=== PATIENT | male | born 1995 | race Caucasian/White ===

== ENCOUNTER 2025-01-15 10:45 | Emergency (ER) | payer OTHER, SELFPAY ==
[2025-01-15 10:47] VITALS: BP 120/84; PULSE 68; RESP 15; TEMP 36.6; O2SAT 97; BMI 24.0
--- NOTE | 2025-01-15 11:01 | CT_ITS ---
PROCEDURE: ABDOMEN/PELVIS W IV CONT ONLY 01/15/2025 REASON FOR EXAM: BILATERAL LOWER ABD AND GROIN PAIN. CROHNS HX. TECHNIQUE: Abdomen and pelvis CT with intravenous contrast. Coronal and Sagittal reconstruction series were provided. PATIENT PREPARATION: Per protocol ORAL CONTRAST TYPE: None. CONTRAST: Isovue 300 VOLUME: 94 mL One or more dose reduction techniques were used (e.g., Automated exposure control, adjustment of the mA and/or kV according to patient size, use of iterative reconstruction technique. RADIATION DOSE SUMMARY: CTDlvol: 10 mGy DLP: 521.32 mGycm COMPARISON: None FINDINGS: Lung bases: Unremarkable Liver: Normal size. No mass. Gallbladder: Unremarkable Spleen: Normal size. Pancreas: Normal size without evidence of mass surrounding inflammation or ductal dilation. Adrenals: Unremarkable Kidneys: Normal renal sizes. No hydronephrosis. Bladder: Mild degree of diffuse bladder wall thickening. Bowel: Prior surgical anastomosis at the distal ileum/cecal region. Appendix: The appendix is not identified. There is no inflammatory process identified in the right lower quadrant to suggest appendicitis. Lymph nodes: Unremarkable. Vasculature: The abdominal aorta and IVC are normal. Peritoneum / Retroperitoneum: Unremarkable Bones: Unremarkable CT/Abdomen/Pelvis W IV Cont ONLY IMPRESSION: Prior surgery at the distal ileum and right hemicolon. No acute abnormality is seen. Reading Location: [id number]
--- NOTE | 2025-01-15 11:02 | EDS_ITS ---
HPI HPI - GI History of Present Illness Chief Complaint: Abd Pain Informant: patient Abdominal Pain/Flank Pain Onset: Today and Yesterday Timing: Continuous Quality: Aching Location: - (Bilateral lower quadrant and groin pain.) Current Severity: Mild Maximum Severity: Mild Nausea/Vomiting/Emesis GI Symptom: Negative for Nausea or Vomiting Diarrhea/Melena/Hematochezia GI Symptom: Negative for Diarrhea, Melena or Hematochezia Associated Symptoms Associated Symptoms: Negative for Dysuria, Frequency or Hematuria Narrative Narrative: 29-year-old male history of Crohn's disease. Prior appendectomy in 2020 and prior ileal resection in 2023. He has had a prior abdominal drain due to an abscess due to Crohn's. Currently he just recently started Remicade infusion therapy about a week ago. He states that he had bilateral lower abdominal and groin pain since yesterday. Denies any nausea or vomiting. He had constipation he took a stool softener now his stools are loose. He denies any dysuria or hematuria. No fever. No recent weight loss. Pain is worse with movement. Denies any abdominal or trauma. Prior similar symptoms: No Recent Illness/Hospitalization: No PFSH PFSH Home Medications ?Medication ?Instructions ?Recorded ?Last Taken ?Type buspirone 10 mg tablet 10 mg PO BID 01/15/25 Unknow n History trazodone 100 mg tablet 100 mg PO QHS PRN sleep 12/29 05/24 Unknown History Allergy/AdvReac Type Severity Reaction Status Date / Time Environmental Allergies: Allergy Intermediate Itching Verified 01/15/25 11:06 Uncoded (seasonal) Surgical History (Updated 01/15/25 @ 11:06 by Kayla Lacey) Hx of appendectomy Social History Smoking Status: Former smoker ROS ROS ED ROS Narrative Bilateral lower abdominal discomfort. No dysuria. No fever. Prior constipation loose stools after stool softener. Constitutional Constitutional ED: Denies chills or fever(s) ENT ENT ED: Denies ear pain Cardiovascular Cardiovascular: Denies chest pain Respiratory/Chest Respiratory/Chest: Denies cough or dyspnea Gastrointestinal Gastrointestinal: Reports abdominal pain and constipation Genitourinary Genitourinary ED: Denies dysuria or hematuria Musculoskeletal Musculoskeletal: Denies arthralgias Integumentary Denies abscess Neurologic Neurologic: Denies headache(s) Psychiatric Psychiatric: Denies anxiety Endocrine Endocrinology: Denies polydipsia Hematologic/Lymphatic Hematologic/Lymphatic: Denies easy bleeding Allergic/Immunologic Allergic/Immunologic ED: Denies mouth swelling, tongue swelling or urticaria EXAM Physical Exam Narrative Exam Narrative: Well-appearing 29-year-old male. Vital signs stable afebrile. No acute distress. H EENT exam pupils round react to light. Moist extremities. Neck nontender no JVD. Lungs clear to auscultation bilaterally. Heart regular rhythm no murmur rate about 70. Chest wall ribs nontender. Abdomen soft nondistended normal bowel sounds without peritoneal signs. He has tenderness in bilateral lower abdomen and groin. There is no peritoneal signs. There is no obvious hernia or mass. Circumcised male. No scrotal tenderness or swelling. No testicular pain. Bilateral descended testicles. No redness. Moving all 4 extremities. Nontender no edema. Normal strength and range of motion. Back nontender. Neurologically he is awake and alert. Answering questions following commands. Const Vital Signs: 01/15/25 10:47 01/15/25 12:30 Temperature 98 F Temperature Source Temporal Pulse Rate 68 Respiratory Rate 15 Blood Pressure 120/84 H 120/81 H Blood Pressure Mean 96 92 Pulse Ox 97 99 Oxygen Delivery Method Room Air Positive well nourished and well developed; Negative for obese, cachectic, contractures or unkempt General Appearance ED: well developed and NAD; Negative for unkempt, cachectic or contractures Nutritional Appearance: Negative for cachectic or obese HEENT normocephalic and atraumatic Eyes PERRL and EOMs intact bilaterally Neck no lymphadenopathy, supple and no JVD General: Negative for tenderness Resp normal respiratory effort and clear to auscultation bilaterally Cardio regular rate, regular rhythm, S1 normal heart sound, S2 normal heart sound and no murmurs GI non-distended and no masses; Negative for non-tender GI Narrative: Bilateral groin tenderness. No obvious inguinal hernia or mass. No testicular or scrotal swelling. Bilateral descended testicles. Circumcised. No lymphadenopathy. Inspection: Negative for abdominal distention Auscultation: normoactive bowel sounds Palpation: soft and tender; Negative for guarding, rigid, hepatomegaly, splenomegaly, hernia, mass, pulsatile mass or rebound tenderness present Back/Spine no CVA tenderness General Back: Negative for CVA tenderness Cervical Spine: Negative for cervical spine tenderness Thoracic Spine / Upper Back: Negative for thoracic spinal tenderness Lumbar Spine / Lower Back: Negative for lumbar spinal tenderness Extremity full ROM General Extremety ED: Negative for edema or tenderness General Extremity: Negative for edema Neuro CN's II-XII intact bilaterally and moves all extremities Sensorium / Orientation: alert, oriented to person, oriented to place and oriented to time; Negative for orientation impaired, confused, lethargic or stuporous Motor Exam: strength 5/5 throughout Psych mental status grossly normal and thought process normal Appearance: Negative for unkempt Attitude: No agitated Mood & Affect: Negative for depressed, anxious or tearful Skin no wounds General Skin Exam: jaundice Lesions: no lesions Rashes: no rashes Trauma: Negative for abrasion Nails: Negative for discolored MDM MDM MDM Narrative Medical decision making narrative: 29-year-old male with history of Crohn's disease prior appendectomy and partial small bowel ileal resection. In the past. Complaining of bilateral groin pain. Exam benign. Mild tenderness. CAT scan labs are being obtained. Differential would include hernia which I do not see at this time. He does not appear to have any testicular swelling nor torsion nor hernia. There is no orchitis. UTI would be a consideration. Crohn's issue. He does not wining for pain. Repeat exam at 1:25 PM patient doing well. Abdomen benign. Repeat exam normal and unchanged. I went over all the test results with the patient he is comfortable being discharged home. Tylenol and Motrin for pain. Outpatient follow-up as needed. History & Record Review Discussion w/independent historian: Patient Additional record(s) reviewed:: No prior records Lab Data Attestation: I reviewed the patient's lab results. Lab results narrative: CBC normal. White count of 5.7. H&H 14 and 42. Platelets 301. Electrolytes show a gap at 9. BUN of 20 creatinine 1.1. Glucose 82. UA normal. No white or red cells. No nitrates. No bacteria. CAT scan abdomen pelvis showed no acute abnormality. Labs: Laboratory Results - last 24 hr 01/15/25 01/15/25 11:07 11:10 WBC 5.7 RBC 4.75 Hgb 14.2 Hct 42.4 MCV 89.3 MCH 29.9 MCHC 33.5 RDW Std Deviation 40.9 RDW Coeff of [place] 12.4 Plt Count 301 MPV 9.8 Immature Gran % (Auto) 0.300 Neut % (Auto) 58.5 Lymph % (Auto) 27.0 F[place]in % (Auto) 9.1 Eos % (Auto) 4.4 Baso % (Auto) 0.7 Absolute Neuts (auto) 3.4 Absolute Lymphs (auto) 1.55 Nucleated RBC % 0 Sodium 137 Potassium 4.5 Chloride 101 Carbon Dioxide 27.1 Anion Gap 9 BUN 20 H Creatinine 1.12 Estim Creat Clear Calc 92.46 Est GFR (MDRD) Non-Af 90 BUN/Creatinine Ratio 17.4 Glucose 82 Calcium 9.5 Urine Color Yellow Urine Clarity Clear Urine pH 7.0 Ur Specific [place] 1.010 Urine Protein TNP Urine Glucose (UA) Normal Urine Ketones Negative Urine Occult Blood Negative Urine Nitrite Negative Urine Bilirubin Negative Urine Urobilinogen Normal Ur Leukocyte Esterase Negative Urine RBC 0 SEEN Urine WBC 0 SEEN Ur Squamous Epith Cells 0 SEEN Urine Bacteria 0 SEEN Urine Mucus 0 SEEN U Random Total Protein < 6.0 Radiography Diagnostic Testing: Clinical Impression(s) from Imaging Studies Abdomen/Pelvis CT 01/15/25 11:01 IMPRESSION: Prior surgery at the distal ileum and right hemicolon. No acute abnormality is seen. Reading Location: [id number] Discharge Plan Triage Chief Complaint: Abd Pain ED Provider: Kentrell Barone Dx/Rx/DC Orders Clinical Impression: Groin pain Instructions: Abdominal Pain Prescriptions: No Action buspirone 10 mg tablet 10 mg PO BID trazodone 100 mg tablet 100 mg PO QHS PRN (Reason: sleep) Primary Care Provider: Carley Escamilla Referrals: Carley Escamilla, ALEISHA-C [Primary Care Provider] - 1 Week if not improving Activity Restrictions/Additional Instructions: Your labs, CAT scan and urine were all normal. No specific cause for your pain. Motrin and Tylenol for pain. Follow-up if not improving. Return if feeling a lot worse. Print Language: Algerian Disposition Disposition: Home, Self Care
[2025-01-15 11:14] LABS: Absolute Lymphocyte Count 1.55 X10^3/uL (0.83-4.51); Absolute Neutrophil Count 3.4 X10^3/uL (2.0-7.7); Basophil# 0.04 X10^3/uL; Basophil% 0.7 % (0-1); Eosinophil# 0.25 X10^3/uL; Eosinophils% 4.4 % (0-5); Hematocrit 42.4 % (40-54); Hemoglobin 14.2 g/dL (13.0-16.5); Lymphocyte # 1.55 X10^3/ul (0.83-4.51); Mean Corp Hgb Conc 33.5 g/dL (32-36); Mean Corpuscular Hgb 29.9 pg (27.0-32.0); Mean Corpuscular Volume 89.3 fL (80-94); Mean Platelet Vol. 9.8 fl (6.2-12.0); Monocyte# 0.52 X10^3/uL; Monocyte% 9.1 % (0-10); NRBC Flagged by Analyzer 0 % (0-5); Neutrophil # 3.36 X10^3/uL (2.7-7.7); Neutrophil % 58.5 % (47-70); Platelet Count 301 K/mm3 (150-450); RBC Distribution Width CV 12.4 % (11.6-14.6); RBC Distribution Width SD 40.9 fl (35.1-43.9); Red Blood Count 4.75 M/mm3 (4.6-6.2); White Blood Count 5.7 K/mm3 (4.4-11.0)
[2025-01-15 11:17] LABS: Bacteria 0 SEEN /hpf (None Seen); Mucous, Urine 0 SEEN /hpf (<or=2+); Red Blood Cells-Urine 0 SEEN /hpf (0-5); Squamous Epithelial Cells - UA 0 SEEN /hpf (0-5); White Blood Cells 0 SEEN /hpf (0-5)
[2025-01-15 11:29] LABS: Color, Urine Yellow (Yellow); Glucose, Dipstick Normal (Normal); Ketone-Dipstick Negative (Negative); Leukocyte Esterase-Dipstick Negative /ul (Negative); Nitrite-Dipstick Negative (Negative); Occult Blood-Urine Negative /ul (Negative); Urine Bilirubin Dipstick Negative (Negative); Urine Clarity Clear (Clear); Urine Urobilinogen Normal (Normal)
[2025-01-15 11:35] LABS: Anion Gap 9 (5-15); BUN 20 mg/dL (4-19); BUN/Creat Ratio 17.4 RATIO (10-20); Calcium,Total 9.5 mg/dL (7.6-11.0); Carbon Dioxide 27.1 mmol/L (21.0-32.0); Chloride 101 mmol/L (98-108); Creatinine, Serum 1.12 mg/dL (0.70-1.20); EST Glomerular Filtration Rate 90 (>60); Estimated Creatinine Clearance 92.46 ml/min (50-250); Glucose 82 mg/dL (70-99); Potassium 4.5 mmol/L (3.3-5.1); Sodium Level 137 mmol/L (133-145)
[2025-01-15 11:47] LABS: Protein, Urine (Random) < 6.0 mg/dL (0.0-12.0)
[2025-01-15 12:30] VITALS: BP 120/81; O2SAT 99
== END 2025-01-15 13:42 | disposition home or self-care (01) ==
PROVIDERS: Emergency Provider Emergency Medicine; Visit Provider Emergency Medicine
DX: R10.31 Right lower quadrant pain (principal); K50.90 Crohn's disease, unspecified, without complications; Z87.891 Personal history of nicotine dependence; R10.32 Left lower quadrant pain; Z90.79 Acquired absence of other genital organ(s); K59.00 Constipation, unspecified
CPT/HCPCS: 74177; 80048; 81001; 84156; 85025; 99282; Q9967; A4216

== ENCOUNTER 2025-01-15 19:37 | Emergency (ER) | payer OTHER, SELFPAY ==
[2025-01-15 19:37] VITALS: BP 132/93; PULSE 88; RESP 17; TEMP 36.7; O2SAT 98; BMI 23.3
--- NOTE | 2025-01-15 21:25 | EX.ED.GUMALE ---
HPI History of Present Illness Chief Complaint: Male Pain/Injury Narrative Narrative: Chief complaint and HPI: Bilateral groin pain. Patient is a 29-year-old male with past medical history of Crohn's disease on Remicade with history of appendectomy in 2020 and prior ileal resection in 2023 who presents for bilateral groin pain. Patient presented to emergency department earlier today with the same complaint in which he was seen by my partner. At that time he had laboratory workup ordered including CBC, BMP, UA that was unremarkable. Had a CT abdomen pelvis without any acute abnormality. Patient's pain was improved and he was discharged home. Patient states that at home he developed recurrent pain after having a bowel movement and became worried so he represented. Bilateral groin pain has since resolved since taking Tylenol prior to arrival. He denies any fever, chills, shortness of breath, chest pain abdominal pain, nausea, vomiting, dysuria. States he is not sexually active and is not concerned for any STI. Denies any penile or testicular pain. Review of systems: See HPI Medications: As listed on the chart Allergies: As listed on the chart PFSH: Per chart Vital signs: As listed on the chart. Reviewed. Physical exam: Gen: A&O x3, NAD but anxious Head: Normocephalic, atraumatic Eyes: No sclera icterus, conjunctiva clear ENT: Moist mucous membranes Neck: Trachea midline, No JVD CV: RRR, no murmurs, no peripheral edema Resp: Lungs CTA BL, no w/r/c GI: Abd soft, non-distended, non-tender, no r/r/g : Circumcised penis. No penile tenderness or discharge. No penile or testicular swelling. Normal lie and position of the testicles. No testicular tenderness, masses, or skin changes. Cremasteric reflexes intact and equal bilaterally. No rashes. No palpable hernias. Musc: Full ROM, no deformity Skin: Warm, dry Neuro: Alert, oriented, grossly intact, sensation intact Psych: Cooperative, appropriate mood and affect [facility] Medical History (Updated 01/15/25 @ 21:[address] Rudolph Escobar DO) Crohn's disease Home Medications ?Medication ?Instructions ?Recorded ?Last Taken ?Type buspirone 10 mg tablet 10 mg PO BID 01/15/25 Unknown History trazodone 100 mg tablet 100 mg PO QHS PRN sleep 01/15/25 Unknown History Allergy/AdvReac Type Severity Reaction Status Date / Time Environmental Allergies: Allergy Intermediate Itching Verified 01/15/25 19:38 Uncoded (seasonal) Surgical History Hx of appendectomy Social History Smoking Status: Former smoker EXAM Physical Exam Const Vital Signs: 01/15/25 19:37 01/15/25 21:36 01/15/25 21:37 Temperature 98.1 F 98.1 F Temperature Source Oral Pulse Rate 88 88 Respiratory Rate 17 16 Blood Pressure 132/93 H 132/93 H 132/93 H Blood Pressure Mean 106 106 106 Pulse Ox 98 98 Oxygen Delivery Method Room Air 01/15/25 21:44 Temperature 98.1 F Temperature Source Pulse Rate 88 Respiratory Rate 16 Blood Pressure 132/93 H Blood Pressure Mean 106 Pulse Ox 98 Oxygen Delivery Method MDM MDM MDM Narrative Medical decision making narrative: Patient is a 29-year-old male with past medical history of Crohn's disease on Remicade with history of appendectomy in 2020 and prior ileal resection in 2023 who presents for bilateral groin pain. History taken by patient as well as medical record. Patient presented to emergency department earlier today with the same complaint in which he was seen by my partner. At that time he had laboratory workup ordered including CBC, BMP, UA that was unremarkable. Had a CT abdomen pelvis without any acute abnormality. Bilateral groin pain not since resolved since taking Tylenol prior to arrival. Vitals are stable. Patient in no acute distress. He is anxious. Physical exam is unremarkable. At this point in time, I do not think any laboratory or imaging is needed given patient just had a unremarkable workup and his symptoms have since resolvedl. Patient and mother are in agreement. Patient stable to discharge home. Follow-up with PCP. Return back to the ED if symptoms change or worsen. Tylenol and Motrin as needed for pain. Patient did inform me that he periodically takes a substance from the gas station which appears to be a synthetic. He was educated to stop taking the substance as this could be the cause. He confirmed understanding. Given patient's previous unremarkable workup, unclear etiology at this time. Impression: 1. Bilateral groin pain, resolved 2. History of Crohn's disease Discharge Plan Triage Chief Complaint: Male Pain/Injury ED Provider: Rudolph Escobar Dx/Rx/DC Orders Clinical Impression: Bilateral groin pain Instructions: Understanding the Pain Response, Medicine for Pain Prescriptions: No Action buspirone 10 mg tablet 10 mg PO BID trazodone 100 mg tablet 100 mg PO QHS PRN (Reason: sleep) Stand Alone Forms: ED Work / School Excuse Primary Care Provider: Carley Escamilla Referrals: Carley Escamilla, ALEISHA-C [Primary Care Provider] - 3-5 Days Activity Restrictions/Additional Instructions: Tylenol and Motrin as needed for pain. Follow-up with PCP. Return back to ED if symptoms change or worsen. Recommend stop taking the gas station substance Print Language: Macedonian Disposition Disposition: Home, Self Care Discharge Date/Time: 01/15/25 21:44
[2025-01-15 21:36] VITALS: BP 132/93; PULSE 88; RESP 16; TEMP 36.7; O2SAT 98
[2025-01-15 21:37] VITALS: BP 132/93
[2025-01-15 21:44] VITALS: BP 132/93; PULSE 88; RESP 16; TEMP 36.7; O2SAT 98
== END 2025-01-15 21:44 | disposition home or self-care (01) ==
LOC: ED 21:41
PROVIDERS: Emergency Provider Surgery; Visit Provider Surgery
DX: R10.31 Right lower quadrant pain (principal); K50.90 Crohn's disease, unspecified, without complications; R10.32 Left lower quadrant pain; Z87.891 Personal history of nicotine dependence; Z90.79 Acquired absence of other genital organ(s)
CPT/HCPCS: 99282

== ENCOUNTER 2025-02-28 19:56 | Emergency (ER) | payer MEDICAID, SELFPAY ==
[2025-02-28 19:56] VITALS: BP 132/119; PULSE 127; RESP 18; TEMP 36.8; O2SAT 100; BMI 25.2
--- NOTE | 2025-02-28 20:18 | EX.ED.VIS.PS ---
HPI <KIERRA Arellano - Last Filed: 02/28/25 22:07> HPI - Psych History of Present Illness Chief Complaint: Suicidal Narrative Narrative: 29-year-old male with past medical history of depression presents with increasing depression and suicidal ideation over the last few weeks. He states he had been sober from alcohol for 5 years but started drinking again and he told himself if he ever did this he would kill himself. He quit his job at [employer] about a month ago and had to move out of his apartment and back in with his parents. He has been stealing from their liquor cabinet and his last drink was around 10 AM. He is taking several medications including venlafaxine, buspirone, and trazodone from his psychiatrist but states they are not helping. He goes to [facility] and sees a counselor weekly but missed his appointment yesterday. He told his sister that he would take one of his climbing ropes and hang himself on a tree. He is not homicidal. No hallucinations. He states he used kratom about 1 week ago. Denies other drug use. [facility] <KIERRA Arellano - Last Filed: 02/28/25 22:07> [facility] Medical History (Updated 02/28/25 @ 21:41 by KIERRA Arellano) Crohn's disease Home Medications ?Medication ?Instructions ?Recorded ?Last Taken ?Type buspirone 10 mg tablet 10 mg PO BID 01/15/25 02/28/25 09:13 History trazodone 100 mg tablet 100 mg PO QHS PRN sleep 01/15/25 02/27/25 History atomoxetine 80 mg capsule 80 mg PO DAILY 02/28/25 02/28/25 History azathioprine 50 mg tablet 50 mg PO DAILY 02/28/25 02/28/25 History melatonin 10 mg capsule 10 mg PO QHS 02/28/25 Unknown History venlafaxine 150 mg 150 mg PO DAILY 02/28/25 02/28/25 History capsule,extended release 24 hr Allergy/AdvReac Type Severity Reaction Status Date / Time Environmental Allergies: Allergy Intermediate Itching Verified 02/28/25 19:59 Uncoded (seasonal) Surgical History Hx of appendectomy Social History Smoking Status: Current every day smoker tobacco type: e-cigarettes ROS <KIERRA Arellano - Last Filed: 02/28/25 22:07> ROS ED ROS Narrative Constitutional: Negative for fever, chills, malaise. CVS: Negative for chest pain. Respiratory: Negative for shortness of breath. GI: Negative for abdominal pain, nausea, vomiting. EXAM <KIERRA Arellano - Last Filed: 02/28/25 22:07> Physical Exam Narrative Exam Narrative: CONST: Patient sitting in no acute distress. EYES: Normal inspection. NECK: Normal inspection. RESP: No respiratory distress, CTAB. CVS: Regular rate and rhythm, no murmur, no gallop. SKIN: Color normal, no rash, warm, dry, intact. EXTREMITIES: Normal appearance, no pedal edema. NEURO: Alert and answering questions appropriately. PSYCH: Normal affect, minimal eye contact. Const Vital Signs: 02/28/25 19:56 Temperature 98.2 F Temperature Source Oral Pulse Rate 127 H Respiratory Rate 18 Blood Pressure 132/119 H Blood Pressure Mean 123 Pulse Ox 100 Oxygen Delivery Method Room Air <J Carlos Borjas MD - Last Filed: 02/28/25 23:28> Physical Exam Const Vital Signs: 02/28/25 19:56 Temperature 98.2 F Temperature Source Oral Pulse Rate 127 H Respiratory Rate 18 Blood Pressure 132/119 H Blood Pressure Mean 123 Pulse Ox 100 Oxygen Delivery Method Room Air MDM <KIERRA Arellano - Last Filed: 02/28/25 22:07> MDM MDM Narrative Medical decision making narrative: History gathered from: Patient and his parents Differential includes depression, mood disorder, polysubstance abuse 29-year-old male presents with suicidal ideation with a plan to hang himself. He also relapsed started drinking alcohol again a month ago. He appears well and nontoxic. He is tachycardic in the 120s with otherwise normal vital signs. He is calm and cooperative and relays his full history. He states he thinks he needs inpatient psychiatric help for his suicidal plans. I pink slipped the patient and ordered clearance labs. CBC is normal. CMP shows normal electrolytes and renal function. Mild likely elevated liver enzymes with AST 60, ALT 76 consistent with alcohol abuse. Alcohol level is 212. Urine drug screen is positive for cannabinoids. I reevaluated the patient around 9:45 PM and he is very anxious and crying and has the blanket over his head. I ordered Ativan 1 mg for anxiety. Plan will be to redraw his alcohol level and have patient evaluated by crisis when he is sober. Lab Data Attestation: I reviewed the patient's lab results. Labs: Laboratory Results - last 24 hr 02/28/25 02/28/25 20:45 21:00 WBC 7.3 RBC 5.10 Hgb 15.7 Hct 45.9 MCV 90.0 MCH 30.8 MCHC 34.2 RDW Std Deviation 44.7 H RDW Coeff of Gary 13.4 Plt Count 275 MPV 9.3 Immature Gran % (Auto) 0.400 Neut % (Auto) 55.4 Lymph % (Auto) 36.9 [place] % (Auto) 4.8 Eos % (Auto) 1.8 Baso % (Auto) 0.7 Absolute Neuts (auto) 4.1 Absolute Lymphs (auto) 2.71 Nucleated RBC % 0 Sodium 142 Potassium 3.6 Chloride 100 Carbon Dioxide 25.4 Anion Gap 16 H BUN 14 Creatinine 1.10 Estim Creat Clear Calc 94.14 Est GFR (MDRD) Non-Af 92 BUN/Creatinine Ratio 12.6 Glucose 131 H Calcium 9.4 Total Bilirubin 0.29 AST 60 H ALT 76 H Alkaline Phosphatase 85 Total Protein 9.3 H Albumin 5.3 H Globulin 4.0 Albumin/Globulin Ratio 1.3 Urine Opiates Screen NEGATIVE U Buprenorphine Qual NEGATIVE Ur Oxycodone Screen NEGATIVE Urine Methadone Screen NEGATIVE Urine Fentanyl Screen NEGATIVE Ur Barbiturates Screen NEGATIVE Ur Phencyclidine Scrn NEGATIVE Ur Amphetamines Screen NEGATIVE U Benzodiazepines Scrn NEGATIVE Urine Cocaine Screen NEGATIVE U Cannabinoids Screen PRESUMPTIVE POSITIVE Ethyl Alcohol 212.0 H <J Carlos Borjas MD - Last Filed: 02/28/25 23:28> [facility] Lab Data Labs: Laboratory Results - last 24 hr 02/28/25 02/28/25 20:45 21:00 WBC 7.3 RBC 5.10 Hgb 15.7 Hct 45.9 MCV 90.0 MCH 30.8 MCHC 34.2 RDW Std Deviation 44.7 H RDW Coeff of Gary 13.4 Plt Count 275 MPV 9.3 Immature Gran % (Auto) 0.400 Neut % (Auto) 55.4 Lymph % (Auto) 36.9 [place] % (Auto) 4.8 Eos % (Auto) 1.8 Baso % (Auto) 0.7 Absolute Neuts (auto) 4.1 Absolute Lymphs (auto) 2.71 Nucleated RBC % 0 Sodium 142 Potassium 3.6 Chloride 100 Carbon Dioxide 25.4 Anion Gap 16 H BUN 14 Creatinine 1.10 Estim Creat Clear Calc 94.14 Est GFR (MDRD) Non-Af 92 BUN/Creatinine Ratio 12.6 Glucose 131 H Calcium 9.4 Total Bilirubin 0.29 AST 60 H ALT 76 H Alkaline Phosphatase 85 Total Protein 9.3 H Albumin 5.3 H Globulin 4.0 Albumin/Globulin Ratio 1.3 Urine Opiates Screen NEGATIVE U Buprenorphine Qual NEGATIVE Ur Oxycodone Screen NEGATIVE Urine Methadone Screen NEGATIVE Urine Fentanyl Screen NEGATIVE Ur Barbiturates Screen NEGATIVE Ur Phencyclidine Scrn NEGATIVE Ur Amphetamines Screen NEGATIVE U Benzodiazepines Scrn NEGATIVE Urine Cocaine Screen NEGATIVE U Cannabinoids Screen PRESUMPTIVE POSITIVE Ethyl Alcohol 212.0 H Treatment and Re-Evaluation Narrative: Dr. Borjas: I have personally performed a face to face assessment of the patient and have reviewed the DIPTI Note. I performed a substantive portion of the visit including all aspects of the following. My gibson findings include: History is suicidal ideation, history of alcohol use. Quit job and moved in with parents. Presents to the emergency department with suicidal ideation and feeling like he needs to be admitted to psychiatric facility for stabilization. Exam is afebrile. Vital signs noted. Appears mildly intoxicated. Able to ambulate in the ED. Cardiovascular examination positive tachycardia. Lungs clear to auscultation bilaterally. Abdomen soft and nontender with normal active bowel sounds. Neurological examination nonfocal, nonlateralizing. Positive suicidal ideation on psychiatric examination. Cooperative. Medical Decision Making: Check medical screening labs. In review of his laboratory work, EtOH is elevated. It will be redrawn and patient evaluated by crisis counselor when alcohol level less than 100. Patient signed out to the overnight physician to check the repeat alcohol level and ensure psychiatric evaluation. Probable psychiatric admission in inpatient facility. Patient is in stable condition. Other additions or changes: [None] Discharge Plan Triage Chief Complaint: Suicidal ED Midlevel Provider: Karo Kan ED Provider: J Carlos Borjas Dx/Rx/DC Orders Clinical Impression: Depression with suicidal ideation, Alcohol abuse, Alcohol intoxication Prescriptions: No Action buspirone 10 mg tablet 10 mg PO BID trazodone 100 mg tablet 100 mg PO QHS PRN (Reason: sleep) venlafaxine 150 mg capsule,extended release 24hr 150 mg PO DAILY azathioprine 50 mg tablet 50 mg PO DAILY atomoxetine 80 mg capsule 80 mg PO DAILY melatonin 10 mg capsule 10 mg PO QHS Primary Care Provider: Carley Escamilla Referrals: Carley Escamilla, NEUROCRITICAL CARE PHYSICIAN-C [Primary Care Provider] - Print Language: Portuguese Disposition Disposition: Psychiatric Hospital or Unit
[2025-02-28 21:09] LABS: Absolute Lymphocyte Count 2.71 X10^3/uL (0.83-4.51); Absolute Neutrophil Count 4.1 X10^3/uL (2.0-7.7); Basophil# 0.05 X10^3/uL; Basophil% 0.7 % (0-1); Eosinophil# 0.13 X10^3/uL; Eosinophils% 1.8 % (0-5); Hematocrit 45.9 % (40-54); Hemoglobin 15.7 g/dL (13.0-16.5); Lymphocyte # 2.71 X10^3/ul (0.83-4.51); Lymphocyte % 36.9 % (19-41); Mean Corp Hgb Conc 34.2 g/dL (32-36); Mean Corpuscular Hgb 30.8 pg (27.0-32.0); Mean Platelet Vol. 9.3 fl (6.2-12.0); Monocyte# 0.35 X10^3/uL; Monocyte% 4.8 % (0-10); NRBC Flagged by Analyzer 0 % (0-5); Neutrophil # 4.07 X10^3/uL (2.7-7.7); Neutrophil % 55.4 % (47-70); Platelet Count 275 K/mm3 (150-450); RBC Distribution Width CV 13.4 % (11.6-14.6); RBC Distribution Width SD 44.7 fl (35.1-43.9); White Blood Count 7.3 K/mm3 (4.4-11.0)
[2025-02-28 21:34] LABS: ALB/GLOB Ratio 1.3 RATIO (0.9-2.4); AST(SGOT) 60 U/L (<=37); Alanine Aminotransfer ALT/SGPT 76 U/L (<=46); Albumin, Serum 5.3 g/dL (3.5-5.0); Alkaline Phosphatase 85 U/L (40-129); Anion Gap 16 (5-15); BUN 14 mg/dL (4-19); BUN/Creat Ratio 12.6 RATIO (10-20); Calcium,Total 9.4 mg/dL (7.6-11.0); Carbon Dioxide 25.4 mmol/L (21.0-32.0); Chloride 100 mmol/L (98-108); EST Glomerular Filtration Rate 92 (>60); Estimated Creatinine Clearance 94.14 ml/min (50-250); Glucose 131 mg/dL (70-99); Potassium 3.6 mmol/L (3.3-5.1); Protein, Total 9.3 g/dL (5.9-8.4); Sodium Level 142 mmol/L (133-145); Total Bilirubin 0.29 mg/dL (0.00-1.30)
--- NOTE | 2025-02-28 21:43 | ED.RN ---
Patient becoming agitated and restless. Family to this RN requesting anxiety meds and to be notified of any changes.
[2025-02-28] MEDS: LORazepam 1 MG Tablet PO (21:51)
[2025-02-28 22:06] LABS: Amphetamine Urine NEGATIVE (<1000 ng/mL); Barbiturate Urine NEGATIVE (< 200 ng/mL); Benzodiazepine Urine NEGATIVE (< 200 ng/mL); Buprenorphine Urine NEGATIVE (< 200 ng/mL); Cocaine Urine NEGATIVE (< 300 ng/mL); Fentanyl, Urine NEGATIVE; Methadone Urine NEGATIVE (< 300 ng/mL); Opiates Urine NEGATIVE (< 300 ng/mL); Oxycodone, Urine NEGATIVE (< 100 ng/mL); PCP Urine NEGATIVE (< 25 ng/mL); THC Urine PRESUMPTIVE POSITIVE (< 50 ng/mL)
--- NOTE | 2025-03-01 00:01 | ED.RN ---
This RN bedside with patient. Patient made comment about wanting to leave and stating he could just walk out of here right now. Patient informed that he is pink slipped and explained what a pink slip is and the process for placement. Patient asked what would happen if he attempts to walk out. Patient explained that security is in the department and that patient will be stopped and restrained. Patient stated that that does not sound pleasant and I would really like to not do that. Patient informed this RN will speak to doc about getting his nighttime meds ordered. While this RN was speaking to physician, Latoya RN informed this RN that patient was verbally expressing thoughts of wanting to elope from ER. Security notified and in department.
[2025-03-01] MEDS: traZODone 100 MG Tablet PO (00:10)
[2025-03-01] MEDS: MELATONIN 10 MG TABLET PO (00:11)
[2025-03-01] MEDS: busPIRone 5 MG Tablet 10 MG PO (00:11)
[2025-03-01 04:46] LABS: Alcohol, Blood (Medical)-Serum 26.6 mg/dL (<=10.0)
[2025-03-01 04:56] VITALS: BP 127/69; PULSE 106; RESP 16; TEMP 36.4; O2SAT 99
[2025-03-01 08:00] VITALS: BP 126/64; PULSE 100; RESP 16; TEMP 36.6; O2SAT 98
== END 2025-03-01 08:03 ==
PROVIDERS: Physician Assistant; Emergency Provider Emergency Medicine; Visit Provider Emergency Medicine
DX: R45.851 Suicidal ideations (principal); K50.90 Crohn's disease, unspecified, without complications; F10.129 Alcohol abuse with intoxication, unspecified; F41.9 Anxiety disorder, unspecified; F32.A Depression, unspecified; F17.290 Nicotine dependence, other tobacco product, uncomplicated
CPT/HCPCS: 80053; 80307; 82077; 85025; 99285